=== PATIENT | female | born 1965 | race Caucasian/White ===

== ENCOUNTER 2016-10-23 22:14 | Emergency (ER) | payer MEDICARE, OTHER ==
[~2016-10-23] VITALS: Ht 167.6 cm; Wt 46.7 kg
[2016-10-23] MEDS ORDERED: EPIN0.3A8 IJ (23:29)
--- NOTE | 2016-10-23 23:29 | PHYS DOC ---
Past Medical History Past Medical History: Fibromyalgia, Kidney Infection, UTI, Other Additional Past Medical Histor: DJD, OSTEOPOROSIS Past Surgical History: Hysterectomy, Tonsillectomy, Other Additional Past Surgical Histo: bilateral breast implants Alcohol Use: None Drug Use: None Adult General Chief Complaint Chief Complaint: ALLERGIC REACTION HPI HPI 51-year-old female presenting to the emergency department after taking Bactrim for a suspected UTI and noticing swelling of her lips with a rash on her hands. She describes and itchiness of her hands that is nonradiating mild intermittent and without alleviating factors. She denies difficulty breathing stridor or tongue swelling. She denies any involvement of the mucous membranes. Review of systems is negative for headache fevers chills shortness of breath stridor cyanosis lethargy or abdominal pain. She denies nausea vomiting. All other review of systems is negative unless otherwise noted in history of present illness. ED course: 51-year-old female presenting to the emergency department today with lip swelling and rash on her hands.Triage vital signs afebrile with normal heart rate. Saturating well on room air. Pertinent physical examination findings show mild maculopapular rash vs uticaric on the dorsum of the hands patient is resting comfortably in the examination room. No wheezing on examination. On inspection of the mucous membranes there is no involvement of the mucous membranes. Patient was given intramuscular epinephrine Solu-Medrol Pepcid and Benadryl. On reexamination she was feeling much better. She was observed for a short period and then subsequent discharged home. I did change her antibiotic for her urinary tract infection to Macrobid. The patient was then discharged home in stable condition to follow up with their primary care physician over the next 2-3 days. They were to return if their symptoms worsened or if they were concerned for any reason. [id number] discharge instructions and return precautions were given. Patient's questions were answered to their satisfaction. Patient is comfortable plan. Review of Systems Review of Systems SEE ABOVE. Current Medications Current Medications Current Medications Medications (Trade) Dose Ordered Sig/Mey Start Time Stop Time Status Last Admin Dose Admin Diphenhydramine HCl (Benadryl) 50 mg 1X ONCE 10/23/16 23:30 10/24/16 00:05 DC Epinephrine HCl (Adrenalin) 0.3 mg 1X ONCE 10/23/16 23:30 10/23/16 23:31 DC 10/23/16 23:34 0.3 MG Famotidine (Pepcid) 20 mg 1X ONCE 10/23/16 23:30 10/23/16 23:31 DC 10/23/16 23:23 20 MG Methylprednisolone Sodium Succinate (SOLU-Medrol 125MG VIAL) 125 mg 1X ONCE 10/23/16 23:30 10/23/16 23:31 DC 10/23/16 23:26 125 MG Allergies Allergies Allergies Coded Allergies Type Severity Reaction Last Updated Verified No Known Drug Allergies 12/11/13 No Physical Exam Physical Exam SEE ABOVE Constitutional: Well developed, well nourished, no acute distress, non-toxic appearance. [] HENT: Normocephalic, atraumatic, bilateral external ears normal, oropharynx moist, no oral exudates, nose normal. []Patient has swollen lips without swelling of the tongue. No stridor present. Resting comfortably. No involvement of the oral pharynx mucous membranes. Eyes: PERRLA, EOMI, conjunctiva normal, no discharge. [] Neck: Normal range of motion, no tenderness, supple, no stridor. [] Cardiovascular:Heart rate regular rhythm, no murmur [] Lungs & Thorax: Bilateral breath sounds clear to auscultation [] Abdomen: Bowel sounds normal, soft, no tenderness, no masses, no pulsatile masses. [] Skin: Warm, dry,SEE ABOVE Back: No tenderness, no CVA tenderness. [] Extremities: No tenderness, no cyanosis, no clubbing, ROM intact, no edema. [] Neurologic: Alert and oriented X 3, normal motor function, normal sensory function, no focal deficits noted. [] Psychologic: Affect normal, judgement normal, mood normal. [] Current Patient Data Vital Signs Vital Signs Date Time Temp Pulse Resp B/P (MAP) Pulse Ox O2 Delivery O2 Flow Rate FiO2 10/24/16 00:02 66 16 106/70 (82) 99 Room Air 10/23/16 22:58 98.1 98.1 EKG EKG [] Radiology/Procedures Radiology/Procedures [] Course & Med Decision Making Course & Med Decision Making Pertinent Labs and Imaging studies reviewed. (See chart for details) [] Dragon Disclaimer Dragon Disclaimer This electronic medical record was generated, in whole or in part, using a voice recognition dictation system. Departure Departure Impression: Primary Impression: Anaphylaxis Additional Impression: UTI (lower urinary tract infection) Disposition: 01 HOME, SELF-CARE Condition: STABLE Referrals: JANELLE VEGA (PCP) Patient Instructions: Anaphylactic Reaction Additional Instructions: Thank you for allowing us to participate in your care today. You have been prescribed epinephrine. Use this medication if you are having difficulty breathing and call 911. Followup with your primary care physician in 3 days if your symptoms do not improve. Call your Primary Doctor tomorrow and inform them of your visit today. If you do not have a primary care provider you can ask for a list of our primary care providers. Return to the emergency department you have any new or concerning findings. This should be evaluated by the primary care physician and any necessary consulting services for continued management within a few days after discharge. Return to emergency room if you have any new or concerning symptoms including but not limited to fever, chills, nausea, vomiting, intractable pain, any new rashes, chest pain, shortness of air, uncontrolled bleeding, difficulty breathing, and/or vision loss. Scripts Nitrofurantoin Monohyd/M-Cryst (MACROBID 100 MG CAPSULE) 100 Mg Capsule 1 CAP PO BID, #10 CAP Prov: MILA CEBALLOS MD 10/24/16 Epinephrine (EPINEPHRINE) 0.3 Mg/0.3 Ml Auto.injct 0.3 MG IJ UD for ANAPHYLAXIS, #1 Prov: MILA CEBALLOS MD 10/23/16 Problem Qualifiers MILA CEBALLOS MD Oct 23, 2016 23:29
[2016-10-23] MEDS ORDERED: methylPREDNISolone SOD SUCC PF 125 MG/2 ML VIAL. IV ONE (23:30)
[2016-10-23] MEDS ORDERED: FAMOTIDINE 20 MG/2 ML VIAL IVP ONE (23:30)
[2016-10-23] MEDS ORDERED: diphenhydrAMINE 50 MG/ML VIAL IV ONE ×2 (23:30)
[2016-10-23] MEDS ORDERED: EPINEPHrine 1 MG/ML VIAL IM ONE (23:30)
[2016-10-24] MEDS ORDERED: NITR100C62 PO (00:52)
[2016-10-24 01:12] VITALS: BP 101/64
== END 2016-10-24 01:15 | disposition home or self-care (01) ==
LOC: ER 22:14
DX: T88.6XXA Anaphylactic reaction due to adverse effect of correct drug or medicament properly administered, initial encounter (principal); T37.0X5A Adverse effect of sulfonamides, initial encounter; K13.0 Diseases of lips; R21 Rash and other nonspecific skin eruption; N39.0 Urinary tract infection, site not specified; M79.7 Fibromyalgia; M81.0 Age-related osteoporosis without current pathological fracture; Z90.710 Acquired absence of both cervix and uterus; Z90.89 Acquired absence of other organs; Y65.8 Other specified misadventures during surgical and medical care; Y92.89 Other specified places as the place of occurrence of the external cause
CPT/HCPCS: 96372; 96374; 96375; 99284; J0171; J1200; J2930; S0028

== ENCOUNTER 2017-02-23 18:37 | Emergency (ER) | payer MEDICARE, OTHER ==
[2017-02-23] MEDS: IV NORMAL SALINE 1000ML BAG 1,000 ML IV (19:23)
[2017-02-23 19:26] LABS: ADD MAN DIFF? NO
[2017-02-23 19:29] LABS: BASO % 0 % (0-3); EOS # 0.1 x10^3/uL (0.0-0.7); EOS % 2 % (0-3); HEMATOCRIT 43.1 % (36.0-47.0); HEMOGLOBIN 14.4 g/dL (12.0-15.5); LYMPH # 0.8 x10^3/uL (1.0-4.8); LYMPH % 16 % (24-48); MEAN CORPUSCULAR HEMOGLOBIN 31 pg (25-35); MEAN CORPUSCULAR HGB CONC 33 g/dL (31-37); MEAN CORPUSCULAR VOLUME 91 fL (79-100); MONO # 0.3 x10^3/uL (0.0-1.1); MONO % 6 % (0-9); NEUT # 3.6 x10^3uL (1.8-7.7); NEUT % 76 % (31-73); PLATELET COUNT 138 x10^3/uL (140-400); RED BLOOD COUNT 4.72 x10^6/uL (3.50-5.40); RED CELL DISTRIBUTION WIDTH 12.5 % (11.5-14.5); WHITE BLOOD COUNT 4.8 x10^3/uL (4.0-11.0)
[2017-02-23 19:30] LABS: BILIRUBIN,URINE NEGATIVE (NEG); CLARITY,URINE CLEAR; COLOR,URINE YELLOW; GLUCOSE,URINE NEGATIVE (NEG); NITRITE,URINE NEGATIVE (NEG); PROTEIN,URINE NEGATIVE (NEG-TRACE)
[2017-02-23 19:41] LABS: BACTERIA,URINE 0 /HPF (0-FEW); RBC,URINE 0 /HPF (0-2); SQUAMOUS EPITHELIAL CELL,UR OCC /LPF; WBC,URINE OCC /HPF (0-4)
[2017-02-23 19:42] LABS: ANION GAP 10 (6-14); BLOOD UREA NITROGEN 18 mg/dL (7-20); BUN/CREATININE RATIO 23 (6-20); CALCIUM 9.6 mg/dL (8.5-10.1); CARBON DIOXIDE 30 mmol/L (21-32); CHLORIDE 102 mmol/L (98-107); CREATININE 0.8 mg/dL (0.6-1.0); GFR 75.6; GLUCOSE 96 mg/dL (70-99); NEG OBC SER NEG; POS OBC SER POS; POTASSIUM 3.8 mmol/L (3.5-5.1); PREG TEST PT QUAL NEGATIVE (NEG); SODIUM 142 mmol/L (136-145)
[2017-02-23 19:48] LABS: ALBUMIN 4.5 g/dL (3.4-5.0); ALBUMIN/GLOBULIN RATIO 1.5 (1.0-1.7); ALK PHOS 118 U/L (46-116); ALT (SGPT) 19 U/L (14-59); AST (SGOT) 23 U/L (15-37); LIPASE 141 U/L (73-393); TOTAL BILIRUBIN 1.8 mg/dL (0.2-1.0); TOTAL PROTEIN 7.6 g/dL (6.4-8.2)
[2017-02-23] MEDS: IOHEXOL 300 MG/ML 100ML VIAL. IV (20:41)
== END 2017-02-23 21:17 | disposition home or self-care (01) ==
LOC: ER 18:37
DX: R10.9 Unspecified abdominal pain (principal); R11.2 Nausea with vomiting, unspecified; M79.7 Fibromyalgia; Z87.440 Personal history of urinary (tract) infections; Z90.710 Acquired absence of both cervix and uterus; Z88.2 Allergy status to sulfonamides; Z88.1 Allergy status to other antibiotic agents
CPT/HCPCS: 36415; 74177; 80053; 81001; 83690; 84703; 85025; 96360; 99285-25; J7030; Q9967

== ENCOUNTER → 2018-03-05 | Day surgery (SDC) | payer MEDICARE, OTHER ==
[~2018-03-05] MED LIST: CYCL5TAB PO; EPIN0.3A8 IJ; HYDR-2761 PO; IV RINGERS,LACTATED 1000ML 1,000 ML IV SCH; LIDOCAINE 1% PF 2 ML VIAL. ID PRN; LIDOCAINE 1% PF 2 ML VIAL. ONE; MIDAZOLAM HCL/PF 2 MG/2 ML VIAL. IV PRN; NITR100C62 PO; PROPOFOL 40 ML IV ONE; fentaNYL PF VIAL 100 MCG/2 ML VIAL IV PRN
[2018-03-05 11:13] VITALS: BP 85/50
--- NOTE | 2018-03-05 13:06 | CONS ---
DATE OF CONSULTATION: 03/05/2018 REFERRING PHYSICIAN: AKIN Hong. HISTORY OF PRESENT ILLNESS: A 52-year-old female whose past medical history is significant for colonic polyps, fibromyalgia and osteoarthrosis, seen for surveillance colon exam. Bowel habits have been regular, without diarrhea. There has been no melena and/or hematochezia. She does note increased upper abdominal pain, which is intermittent and lasts for hours after meals without radiation. Weight and appetite have been stable, although early satiety has been present. With the continued issues, she requested additional evaluation. PAST MEDICAL HISTORY: Constipation, colonic polyps, osteoarthrosis and fibromyalgia. ALLERGIES: SULFA AND TRIMETHOPRIM. MEDICATIONS: Include cyclobenzaprine and hydrocodone. FAMILY HISTORY: Significant for colorectal cancer with her father, esophageal cancer with her father, DC with both parents and pancreatic cancer with her father. SOCIAL HISTORY: She is a former smoker, social drinker. PAST SURGICAL HISTORY: Status post breast surgery and hysterectomy. REVIEW OF SYSTEMS: As per records. PHYSICAL EXAMINATION: GENERAL: This is a well-nourished, well-developed female who is alert and cooperative, in no acute distress. VITAL SIGNS: Pulse is 68 and blood pressure last measured was 96/61. HEENT EXAMINATION: Reveals normocephalic and atraumatic head. Pupils and extraocular muscles are not tested. Sclerae anicteric. NECK: Supple. LUNGS: Clear. CARDIOVASCULAR EXAMINATION: Reveals S1 and S2, without S3, S4 or appreciable murmur. ABDOMEN: Examination reveals epigastric tenderness to deep palpation. No appreciable hepatosplenomegaly. EXTREMITIES: Examination reveals no cyanosis, clubbing or edema. IMPRESSION AND PLAN: 1. History of colonic polyps with family history of colon cancer. Surveillance colonoscopy is recommended. Risks and benefits have been previously discussed. 2. Epigastric abdominal pain, etiology is to be determined. Differential includes gallbladder disease, peptic ulcer disease, Goins's, gastroparesis and celiac disease. Therefore, we recommend upper endoscopy. ALIYAH NATH MD DR: LIZA/stephany JOB#: [id number] / [id number]
== END | disposition home or self-care (01) ==
LOC: SURG 09:29
PROVIDERS: ATTEND Internal Medicine Gastroenterology
DX: K59.00 Constipation, unspecified (principal); K29.50 Unspecified chronic gastritis without bleeding; K64.0 First degree hemorrhoids; M19.90 Unspecified osteoarthritis, unspecified site; M79.7 Fibromyalgia; M81.0 Age-related osteoporosis without current pathological fracture; Z79.899 Other long term (current) drug therapy; Z88.2 Allergy status to sulfonamides; Z88.8 Allergy status to other drugs, medicaments and biological substances; Z80.0 Family history of malignant neoplasm of digestive organs; Z87.891 Personal history of nicotine dependence; Z86.010 Personal history of colon polyps; Z82.49 Family history of ischemic heart disease and other diseases of the circulatory system; Z90.710 Acquired absence of both cervix and uterus; Z98.890 Other specified postprocedural states
CPT/HCPCS: 43235; 45378; J2704

== ENCOUNTER 2018-03-28 19:23 | Emergency (ER) | payer MEDICARE, OTHER ==
[~2018-03-28] VITALS: Ht 167.6 cm; Wt 46.7 kg
[~2018-03-28 19:23] MED LIST changes: -IV RINGERS,LACTATED 1000ML 1,000 ML IV SCH; -LIDOCAINE 1% PF 2 ML VIAL. ID PRN; -LIDOCAINE 1% PF 2 ML VIAL. ONE; -MIDAZOLAM HCL/PF 2 MG/2 ML VIAL. IV PRN; -PROPOFOL 40 ML IV ONE; -fentaNYL PF VIAL 100 MCG/2 ML VIAL IV PRN
[2018-03-28 19:50] VITALS: BP 95/64
--- NOTE | 2018-03-28 20:13 | PHYS DOC ---
Past Medical History Past Medical History: Fibromyalgia, Kidney Infection, UTI, Other Additional Past Medical Histor: DJD, OSTEOPOROSIS ([facility],[employer]) Past Surgical History: Hysterectomy, Tonsillectomy, Other Additional Past Surgical Histo: bilateral breast implants ([facility],[employer]) Alcohol Use: None Drug Use: None ([facility],[employer]) Adult General Chief Complaint Chief Complaint: FLU SYMPTOM [facility] HPI Patient is a 52 year old female who presents with cough with green sputum production, nasal congestion, chest tightness, body aches since Thursday. ([facility],[employer]) Review of Systems Review of Systems Constitutional: Denies fever or chills [] Eyes: Denies change in visual acuity, redness, or eye pain [] HENT: nasal congestion or denies sore throat [] Respiratory: cough or shortness of breath [] Cardiovascular: No additional information not addressed in HPI [] GI: Denies abdominal pain, nausea, vomiting, bloody stools or diarrhea [] : Denies dysuria or hematuria [] Musculoskeletal: Body aches. Denies back pain or joint pain [] Integument: Denies rash or skin lesions [] Neurologic: Denies headache, focal weakness or sensory changes [] All other systems were reviewed and found to be within normal limits, except as documented in this note. ([facility],MARGARITO ) Allergies Allergies Allergies Coded Allergies Type Severity Reaction Last Updated Verified sulfamethoxazole Allergy Severe 03/05/18 Yes trimethoprim Allergy Severe 03/05/18 Yes (CONSTANTINE MULLINS MD) Physical Exam Physical Exam Constitutional: Well developed, well nourished, no acute distress, non-toxic appearance. [] HENT: Normocephalic, atraumatic, bilateral external ears normal, oropharynx moist, no oral exudates, nose normal. [] Eyes: PERRLA, EOMI, conjunctiva normal, no discharge. [] Neck: Normal range of motion, no tenderness, supple, no stridor. [] Cardiovascular:Heart rate regular rhythm, no murmur [] Lungs & Thorax: Bilateral breath sounds clear to auscultation [] Abdomen: Bowel sounds normal, soft, no tenderness, no masses, no pulsatile masses. [] Skin: Warm, dry, no erythema, no rash. [] Back: No tenderness, no CVA tenderness. [] Extremities: No tenderness, no cyanosis, no clubbing, ROM intact, no edema. [] Neurologic: Alert and oriented X 3, normal motor function, normal sensory function, no focal deficits noted. [] Psychologic: Affect normal, judgement normal, mood normal. Physical exam normal [] (MARGARITO TRUONG APRN) Current Patient Data Vital Signs Vital Signs Date Time Temp Pulse Resp B/P (MAP) Pulse Ox O2 Delivery O2 Flow Rate FiO2 03/28/18 19:50 98.2 55 16 95/64 (74) 97 Room Air 98.2 (CONSTANTINE MULLINS MD) Lab Values Laboratory Tests Test 03/28/18 20:08 Influenza Type A Antigen Negative (NEGATIVE) Influenza Type B Antigen Negative (NEGATIVE) (CONSTANTINE MULLINS MD) Lab Values Laboratory Tests Test 03/28/18 20:08 Influenza Type A Antigen Negative (NEGATIVE) Influenza Type B Antigen Negative (NEGATIVE) (MARGARITO TRUONG APRN) EKG EKG [] (MARGARITO TRUONG APRN) Radiology/Procedures Radiology/Procedures [] (MARGARITO TRUONG APRN) Course & Med Decision Making Course & Med Decision Making Patient is a 52 year old female who presents with cough with green sputum production, nasal congestion, chest tightness, body aches since Thursday. Ambulatory with a steady gait. Skin pink warm and dry. Mucous membranes are moist. Lungs are clear to auscultation all lobes. She denies any nausea, vomiting, diarrhea. Alert and oriented. Bilateral tympanic membranes are pearly white. Throat is pink without exudates or swelling. Afebrile. Flu negative. Patient to receive a steroid dose pack and a antibiotic. Patient needs to follow up with primary care this week if not getting better. (MARGARITO TRUONG APRN) Course & Med Decision Making Staff Physician Addendum: I was working in the ER during the course of this patient's visit. I was available for consultation as needed, but I was not directly involved in the care of this patient. (CONSTANTINE MULLINS MD) Dragon Disclaimer Dragon Disclaimer This electronic medical record was generated, in whole or in part, using a voice recognition dictation system. (MARGARITO TRUONG APRN) Departure Departure Impression: Primary Impression: Respiratory infection Disposition: 01 HOME, SELF-CARE Condition: STABLE Referrals: JANELLE VEGA MD (PCP) Patient Instructions: Cough, Adult, Upper Respiratory Infection, Adult Additional Instructions: Follow-up with primary care provider this week if not getting better. Drink plenty of fluids. Take ibuprofen or Tylenol or [id number] cold medications. Take medications as prescribed. Scripts Azithromycin (AZITHROMYCIN TABLET) 250 Mg Tablet 1 PKG PO UD, #6 TAB Prov: MARGARITO TRUONG APRN 03/28/18 Methylprednisolone (MEDROL) 4 Mg Tab.ds.pk 1 PKG PO UD, #1 PKG Prov: MARGARITO TRUONG APRN 03/28/18 MARGARITO TRUONG APRN Mar 28, 2018 20:13 CONSTANTINE MULLINS MD Mar 29, 2018 21:36
[2018-03-28 20:39] LABS: INFLUENZA A PATIENT NEGATIVE (NEGATIVE); INFLUENZA B PATIENT NEGATIVE (NEGATIVE)
[2018-03-28] MEDS ORDERED: METH4TAB2 PO (20:52)
[2018-03-28] MEDS ORDERED: AZIT250T6 PO (20:53)
== END 2018-03-28 21:02 | disposition home or self-care (01) ==
LOC: ER 19:23
DX: J98.8 Other specified respiratory disorders (principal); M79.7 Fibromyalgia; Z87.440 Personal history of urinary (tract) infections; Z90.710 Acquired absence of both cervix and uterus; Z88.1 Allergy status to other antibiotic agents
CPT/HCPCS: 87804; 99283

== ENCOUNTER → 2018-05-19 | Outpatient (CLI) | payer MEDICARE, OTHER ==
[~2018-05-19] MED LIST changes: +AZIT250T6 PO; +METH4TAB2 PO
--- NOTE | 2018-05-19 15:09 | KCIC ---
MRI of the lumbar spine without contrast 05/19/2018 CLINICAL HISTORY: Chronic low back pain TECHNIQUE: Unenhanced T1-weighted, T2-weighted and inversion recovery sagittal and T1-weighted and T2-weighted axial images of the lumbar spine were obtained. FINDINGS: Minimal S-shaped curvature of the thoracolumbar spine is seen. Degenerative signal changes are seen involving all of the disks of the lumbar spine. Degenerative signal changes are seen within the marrow surrounding these discs. The conus medullaris is normal morphology, position, and signal characteristics. Incidental note is made of several perineural cyst within the sacral spinal canal extending through the sacral foramen. These measure 5 mm to 1.7 cm in size. At the L1-2, L2-3 and L3-4 disc spaces there are mild generalized disc bulges. Degenerative changes are seen involving the facet joints bilaterally. There is mild ligamentum flavum hypertrophy bilaterally. These findings do not result in significant central spinal canal or neural foraminal stenosis. At the L4-5 disc space there is a mild to moderate generalized disc bulge. Superimposed on this disc bulge is a right lateral focal disc protrusion. This measures 4 mm in AP diameter. Degenerative changes are seen involving the facet joints bilaterally. There is mild ligamentum flavum hypertrophy bilaterally. These findings when combined do not result in significant central spinal canal stenosis. Mild right neural foraminal stenosis is seen. The left neural foramen is patent. At the L5-S1 disc space there is a mild generalized disc bulge. Degenerative changes are seen involving the facet joints bilaterally. These findings do not result in significant central spinal canal or neural foraminal stenosis. IMPRESSION: The changes of degenerative disc disease are seen involving the lumbar spine. These findings do not result in significant central spinal canal stenosis at any level. Mild right neural foraminal stenosis is seen at L4-5. Electronically signed by: Kris Plunkett MD (05/19/2018 3:06 PM) [id number]
== END | disposition home or self-care (01) ==
LOC: KCIC MRI 10:04
PROVIDERS: ATTEND Physician Assistant
DX: M51.36 Other intervertebral disc degeneration, lumbar region (principal); M48.061 Spinal stenosis, lumbar region without neurogenic claudication; M47.817 Spondylosis without myelopathy or radiculopathy, lumbosacral region; M51.27 Other intervertebral disc displacement, lumbosacral region
CPT/HCPCS: 72148

== ENCOUNTER → 2018-05-31 | Outpatient (CLI) | payer MEDICARE, OTHER ==
--- NOTE | 2018-05-31 12:05 | KCIC ---
MR of the left knee HISTORY: Left knee pain laterally, radiates anteriorly. Intermittent pain and stiffness for one year. TECHNIQUE: Routine multiplanar sequences are obtained. FINDINGS: No evidence of a medial or lateral meniscal tear. Anterior and posterior cruciate ligaments are intact. Medial collateral ligament is intact. Iliotibial band unremarkable. Fibular collateral ligament, biceps femoris tendon and popliteus tendon are intact. Extensor mechanism is intact. Small joint effusion. No significant Ross's cyst. Moderate to severe chondromalacia of the patella with subchondral cystic change and irregular areas of cartilage signal and fissuring. The medial and lateral compartment cartilage appears intact. No aggressive bone destruction, acute fracture or significant marrow pathology. IMPRESSION: 1. 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 2. No evidence of meniscal tear or internal derangement. Electronically signed by: Willian Edge MD (05/31/2018 12:02 PM) [id number]
--- NOTE | 2018-05-31 13:35 | KCIC ---
MR of the right knee HISTORY: Right knee pain. Lateral pain that radiates anteriorly. Intermittent pain. Stiffness. Symptoms for one year. TECHNIQUE: Routine multiplanar sequences are obtained. FINDINGS: No evidence of medial or lateral meniscal tear. The anterior and posterior cruciate ligaments are intact. Medial collateral ligament is intact. Iliotibial band unremarkable. Fibular collateral ligament intact. Biceps femoris tendon and popliteus tendon are intact. Extensor mechanism intact. No acute retinacular injury. Small joint effusion. Moderate to severe chondromalacia of the patella with small subchondral cysts. Milder chondromalacia at the lateral joint compartment. No acute fracture or aggressive bone destruction. No significant Ross's cyst. IMPRESSION: 1. No evidence of meniscal tear. 2. Primary osteoarthritis, mainly at the patella. Electronically signed by: Willian Edge MD (05/31/2018 1:32 PM) [id number]
--- NOTE | 2018-05-31 15:50 | KCIC ---
MRI of the cervical spine without contrast 05/31/2018 CLINICAL HISTORY: Intermittent neck pain for 10 years. TECHNIQUE: Unenhanced T1-weighted, T2-weighted and inversion recovery sagittal and gradient echo and T2-weighted axial images of the cervical spine were obtained. FINDINGS: Mild lateral curvature of the cervical spine is seen convex to the right. There is straightening of the normal cervical lordosis. Degenerative signal changes are seen involving all of the disks of the cervical spine. Degenerative signal changes are seen within the marrow surrounding these discs. Loss of height of the C5-6 and C6-7 discs is noted. The cervical spinal cord is normal morphology, position, and signal characteristics. At the C2-3 disc space there is a minimal generalized disc bulge. Degenerative changes are seen involving the uncovertebral and facet joints bilaterally. These findings do not result in significant central spinal canal or neural foraminal stenosis. At the C3-4 disc space there is a mild to moderate generalized disc bulge. This is eccentric to the right. Degenerative changes are seen involving the uncovertebral and facet joints, left greater than right. These findings do not result in significant central spinal canal stenosis. Mild bilateral neural foraminal stenosis is seen. At the C4-5 disc space there is a mild generalized disc bulge. Degenerative changes are seen involving the uncovertebral and facet joints bilaterally. These findings do not result in significant central spinal canal or neural foraminal stenosis. At the C5-6 disc space there is a mild generalized disc bulge. Degenerative changes are seen involving the uncovertebral and facet joints bilaterally. These findings do not result in significant central spinal canal stenosis. Mild bilateral neural foraminal stenosis is seen. At the C6-7 disc space there is a mild generalized disc bulge. Degenerative changes are seen involving the uncovertebral and facet joints, right greater than left. These findings do not result in significant central spinal canal stenosis. Mild right neural foraminal stenosis is seen. The left neural foramen is patent. At the C7-T1 disc space there is a mild generalized disc bulge. Degenerative changes are seen involving the facet joints bilaterally. These findings do not result in significant central spinal canal or neural foraminal stenosis. IMPRESSION: Degenerative changes are seen throughout the cervical spine. These findings do not result in significant central spinal canal stenosis at any level. Mild bilateral neural foraminal stenosis is seen at C3-4 and C5-6. Mild right neural foraminal stenosis is seen at C6-7. Electronically signed by: Kris Plunkett MD (05/31/2018 3:47 PM) [id number]
== END | disposition home or self-care (01) ==
LOC: KCIC MRI 08:14
PROVIDERS: ATTEND Physician Assistant
DX: M17.11 Unilateral primary osteoarthritis, right knee (principal); M22.41 Chondromalacia patellae, right knee; M22.42 Chondromalacia patellae, left knee; M25.462 Effusion, left knee; M47.812 Spondylosis without myelopathy or radiculopathy, cervical region; M48.02 Spinal stenosis, cervical region; M50.23 Other cervical disc displacement, cervicothoracic region
CPT/HCPCS: 72141; 73721

== ENCOUNTER → 2018-10-26 | Outpatient (CLI) | payer MEDICARE, OTHER ==
--- NOTE | 2018-10-26 15:31 | KCIC ---
THORACIC SPINE WO CONTRAST History: Radiculopathy. Technique: Multiplanar, multi sequential noncontrast MR imaging was performed of the thoracic spine. Comparison: None Findings: Normal vertebral body height. No fracture. Normal alignment. No pathologic marrow replacing process. T12 superior endplate Schmorl's node. Normal appearance of the thoracic spinal cord. No pathologic signal abnormality. Mild multilevel degenerative disc disease. Tiny posterior disc protrusions. No significant canal narrowing. Minimal cord flattening T3-T4. No neuroforaminal narrowing. Biapical pleural and parenchymal scarring. Impression: 1. Mild multilevel thoracic spondylosis. No significant canal or neuroforaminal narrowing. Electronically signed by: Henry Pedroza DO (10/26/2018 3:28 PM) [id number]
== END | disposition home or self-care (01) ==
LOC: KCIC MRI 12:58
PROVIDERS: ATTEND Neurological Surgery
DX: M51.14 Intervertebral disc disorders with radiculopathy, thoracic region (principal); M47.24 Other spondylosis with radiculopathy, thoracic region
CPT/HCPCS: 72146